=== PATIENT | female | born 1975 | race Caucasian/White ===

== ENCOUNTER 2017-11-16 13:12 | Emergency (ER) | payer BC ==
[2017-11-16] MEDS ORDERED: KETOROLAC 60 MG INJ IM (14:08)
[2017-11-16] MEDS: ONDANSETRON (ODT) 4 MG TAB ODT (14:40)
[2017-11-16] MEDS: IBUPROFEN 600 MG TAB PO (14:40)
== END 2017-11-16 15:26 | disposition home or self-care (01) ==
LOC: FTE 13:12
DX: R51 Headache (principal)
CPT/HCPCS: 81025; 99283